=== PATIENT | female | born 1955 | race Caucasian/White ===

== ENCOUNTER 2020-06-13 16:30 | Emergency (ER) | payer OTHER, SELFPAY ==
--- NOTE | ~2020-06-13 | CT_ITS ---
EXAMINATION: CT brain wo con EXAM DATE: 06/13/2020 17:31 INDICATION: Dizziness, confusion. TECHNIQUE: Spiral CT of the head was performed without contrast. Axial, coronal and sagittal images were reviewed. The dose-length product (DLP) for this examination was 605.33 mGy-cm. The exposure w as tailored according to patient size, and iterative reconstruction (ASIR) was used as additional dos e reduction technique. There is no prior study for comparison. FINDINGS: There is no acute intraparenchymal hemorrhage. No evidence of intraparenchymal brain mass lesion. No evidence of acute infarction. There is no mass effect or midline shift. The ventricles are normal in size. There are no extra-axial collections. There are no acute calvarial fractures. T he orbits are unremarkable. Soft tissue is unremarkable. The visualized sinuses and mastoid air belkis ls are well aerated. IMPRESSION: 1. No acute intracranial findings. Reviewed, dictated and finalized at location A. 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
[2020-06-13 16:34] VITALS: BP 133/72; PULSE 88; RESP 18; TEMP 36.4; O2SAT 94
--- NOTE | 2020-06-13 16:44 | ECG_ITS ---
Measurements Intervals [place] Rate: 80 P: 35 WV: 148 QRS: 41 QRSD: 78 T: 65 QT: 395 QTc: 458 Interpretive Statements SINUS RHYTHM VENTRICULAR PREMATURE COMPLEX BORDERLINE ECG Electronically Signed On 06-14-2020 7:10:19 ELECTRON BEAM MACHINE WELDER SETTER by Deven Acuña D.O.
--- NOTE | 2020-06-13 17:04 | PC.NURSE ---
pt sarcastic in room, appears to be having trouble getting words out when speaking to staff. pt not making sense. provider in room nno at this time
--- NOTE | 2020-06-13 17:11 | ED.DIZZY ---
HPI - Dizziness General Chief Complaint: Dizziness <Francisco Javier Kwok MD - Last Filed: 06/13/20 19:00> Stated Complaint: vertigo <Francisco Javier Kwok MD - Last Filed: 06/13/20 19:00> Time Seen by Provider: 06/13/20 16:55 <Francisco Javier Kwok MD - Last Filed: 06/13/20 19:00> History of Present Illness HPI Narrative: History limited due to poor historian/intoxication 65 yo female w/ h/o hypothyroidism presents to the ED for disorientation. She reports that she has felt strange since about 3 PM. She is not able to describe what she is feeling. She reports that she can not taste anything, but she knows she likes it so she keeps eating. She also reports that she can not eat because she can't keep anything down. She reportedly used marijuana for the first time in decades today, buut she does not believe that it is the cause of her symptoms. <Francisco Javier Kwok MD - Last Filed: 06/13/20 19:00> Related Data Allergies/Adverse Reactions: Allergies Allergy/AdvReac Type Severity Reaction Status Date / Time codeine Allergy Intermediate Nausea and Verified 06/13/20 18:51 Vomiting <Francisco Javier Kwok MD - Last Filed: 06/13/20 19:00> Review of Systems Review of Systems: All systems reviewed & are unremarkable except as noted in HPI and below <Francisco Javier Kwok MD - Last Filed: 06/13/20 19:00> Constitutional: Constitutional: Denies fever(s) <Francisco Javier Kwok MD - Last Filed: 06/13/20 19:00> ENT: Reports dizziness <Francisco Javier Kwok MD - Last Filed: 06/13/20 19:00> Cardiovascular: Cardiovascular: Denies chest pain <Francisco Javier Kwok MD - Last Filed: 06/13/20 19:00> Respiratory: Respiratory: Denies dyspnea <Francisco Javier Kwok MD - Last Filed: 06/13/20 19:00> Gastrointestinal: Gastrointestinal: Reports nausea and Reports vomiting <Francisco Javier Kwok MD - Last Filed: 06/13/20 19:00> Genitourinary: Genitourinary: Denies dysuria <Francisco Javier Kwok MD - Last Filed: 06/13/20 19:00> Neurologic: Denies syncope and Denies weakness <Francisco Javier Kwok MD - Last Filed: 06/13/20 19:00> Psychiatric: Psychiatric: Reports anxiety <Francisco Javier Kwok MD - Last Filed: 06/13/20 19:00> [facility] Past Medical History Medical History: Medical History Encounter for smoking cessation counseling Hypertensive heart disease with CHF Lymphedema of right lower extremity Tinnitus <Francisco Javier Kwok MD - Last Filed: 06/13/20 19:00> Family History Family History: Family History Other Hypertension <Francisco Javier Kwok MD - Last Filed: 06/13/20 19:00> Social History Social History: Social History Smoking status: Smoker, status unknown Second hand tobacco smoke exposure: No Alcohol intake: never Gender identity (if verbalized by the patient): Female <Francisco Javier Kwok MD - Last Filed: 06/13/20 19:00> Exam Const: General: healthy appearing, no acute distress and alert <Francisco Javier Kwok MD - Last Filed: 06/13/20 19:00> Orientation/consciousness: patient oriented x3 <Francisco Javier Kwok MD - Last Filed: 06/13/20 19:00> HENMT: Head: normal to inspection <Francisco Javier Kwok MD - Last Filed: 06/13/20 19:00> Eyes: Pupils: Equal, round and reactive pupils present <Francisco Javier Kwok MD - Last Filed: 06/13/20 19:00> EOM: EOMs intact bilaterally <Francisco Javier Kwok MD - Last Filed: 06/13/20 19:00> Resp: Effort & Inspection: normal respiratory effort <Francisco Javier Kwok MD - Last Filed: 06/13/20 19:00> Auscultation: clear to auscultation bilaterally <Francisco Javier Kwok MD - Last Filed: 06/13/20 19:00> Cardio: Rate: regular rate <Francisco Javier Kwok MD - Last Filed: 06/13/20 19:00> Rhythm: regular rhythm <Francisco Javier Kwok MD - Last Filed: 06/13/20 19:00> GI: GI Palp: Yes Soft t
[2020-06-13] MEDS: SODIUM CHLORIDE 0.9% IV 1,000 ML 999 ML IV CONT (17:43)
[2020-06-13] MEDS: MECLIZINE HCL 25 MG TABLET PO (17:43)
[2020-06-13 17:45] LABS: Basophils Percent Auto 0.2 % (0.2-1.2); Eosinophils Absolute Auto 0.4 K/mm3 (0-0.3); Eosinophils Percent Auto 2.5 % (0-4.4); Hematocrit 40.2 % (37.0-47.0); Hemoglobin 13.3 g/dL (12.0-15.0); Immature Granulocyte Absolute 0.08 K/mm3 (0.00-0.031); Immature Granulocyte Percent A 0.5 % (0-0.5); Lymphocytes Percent Auto 16.5 % (18.3-44.2); Mean Corpuscular HGB Conc 33.1 g/dl (32-36); Mean Corpuscular Hemoglobin 32.2 pg (26-34); Mean Corpuscular Volume 97.3 fl (80-100); Mean Platelet Volume 11.3 fl (7.4-10.4); Monocytes Absolute Auto 1.1 K/mm3 (0.1-0.6); Monocytes Percent Auto 6.9 % (2.6-8.5); Neutrophils Percent Auto 73.4 % (45.5-73.1); Platelet Count Result 290 k/mm3 (150-375); Red Blood Count 4.13 M/mm3 (4.2-5.4); Red Cell Distribution Width 13.4 % (11.5-14.5); White Blood Count 16.3 K/mm3 (4.5-10.0)
[2020-06-13 18:07] LABS: Alanine Aminotransferase 15 U/L (4-35); Albumin Level 3.9 g/dL (3.5-5.1); Alkaline Phosphatase 114 U/L (38-126); Anion Gap 8 mmol/L (8-16); Aspartate Amino Transferase 29 U/L (14-36); Bilirubin,Total 0.7 mg/dL (0.2-1.3); Blood Urea Nitrogen 11 mg/dL (7-17); Calcium 8.5 mg/dL (8.4-10.2); Carbon Dioxide 26 mmol/L (22-30); Chloride 103 mmol/L (98-107); Estimated CRCL calculation 70 ml/min; Estimated Glomerular Filt Rate > 60; Glucose 87 mg/dL (65-105); Potassium 4.1 mmol/L (3.4-5.0); Sodium 137 mmol/L (137-145)
[2020-06-13 18:52] VITALS: BP 112/78; PULSE 80; RESP 20; O2SAT 95
--- NOTE | 2020-06-13 18:52 | PC.NURSE ---
Patient ambulated to bathroom at this time, advised we need a urine sample. Patient threw the urine cup away and states you already got that from me. No urine sample was obtained earlier and patient is aware we are still needing this.
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
== END 2020-06-13 19:25 | disposition left against medical advice (07) ==
PROVIDERS: Emergency Medicine; Emergency Provider Emergency Medicine; PCP Internal Medicine
DX: R42 Dizziness and giddiness (principal); I11.0 Hypertensive heart disease with heart failure; I50.9 Heart failure, unspecified; I49.3 Ventricular premature depolarization
CPT/HCPCS: 36415; 70450; 80053; 85025; 93005; 99284; A9270; J7030

== ENCOUNTER 2021-08-09 10:41 | Outpatient (CLI) | payer OTHER, SELFPAY ==
[2021-08-09 11:21] LABS: Basophils Absolute Auto 0.1 K/mm3 (0.0-0.1); Basophils Percent Auto 0.7 % (0.2-1.2); Eosinophils Absolute Auto 0.3 K/mm3 (0-0.3); Eosinophils Percent Auto 3.9 % (0-4.4); Hematocrit 44.1 % (37.0-47.0); Hemoglobin 15.5 g/dL (12.0-15.0); Immature Granulocyte Absolute 0.02 K/mm3 (0.00-0.031); Immature Granulocyte Percent A 0.2 % (0-0.5); Lymphocytes Absolute Auto 2.74 K/mm3 (0.9-3.2); Lymphocytes Percent Auto 32.6 % (18.3-44.2); Mean Corpuscular HGB Conc 35.1 g/dl (32-36); Mean Corpuscular Hemoglobin 32.4 pg (26-34); Mean Corpuscular Volume 92.3 fl (80-100); Mean Platelet Volume 10.7 fl (7.4-10.4); Monocytes Absolute Auto 0.6 K/mm3 (0.1-0.6); Monocytes Percent Auto 7.6 % (2.6-8.5); Neutrophils Absolute Auto 4.6 K/mm3 (1.3-6.7); Platelet Count Result 361 k/mm3 (150-375); Red Blood Count 4.78 M/mm3 (4.2-5.4); Red Cell Distribution Width 12.2 % (11.5-14.5); White Blood Count 8.4 K/mm3 (4.5-10.0)
[2021-08-09 11:36] LABS: Alanine Aminotransferase 13 U/L (4-35); Albumin Level 4.5 g/dL (3.5-5.1); Alkaline Phosphatase 108 U/L (38-126); Anion Gap 6 mmol/L (8-16); Aspartate Amino Transferase 30 U/L (14-36); Bilirubin,Total 0.7 mg/dL (0.2-1.3); Blood Urea Nitrogen 18 mg/dL (7-17); Calcium 8.9 mg/dL (8.4-10.2); Carbon Dioxide 32 mmol/L (22-30); Chloride 98 mmol/L (98-107); Estimated Glomerular Filt Rate 56; Glucose 100 mg/dL (65-110); HDL Direct 76 mg/dL; Potassium 2.8 mmol/L (3.4-5.0); Sodium 136 mmol/L (137-145); Triglycerides 172 mg/dL (<150)
[2021-08-09 11:41] LABS: LDL Cholesterol Direct 191 mg/dL
[2021-08-09 12:21] LABS: Cholesterol 368 mg/dL (0-200)
[2021-08-09 12:38] LABS: Folic Acid 7.7 ng/mL (2.76->20)
[2021-08-11 08:52] LABS: PCP NEGATIVE ng/mL (<25)
[2021-08-18 15:56] LABS: Amphetamines NEGATIVE; Barbiturates NEGATIVE; Marijuana Metabolites NEGATIVE
[2021-08-18 15:57] LABS: Benzodiazepines NEGATIVE; Cocaine Metabolites NEGATIVE
== END 2021-08-09 10:42 | disposition home or self-care (01) ==
LOC: ANHLAB 10:43
PROVIDERS: PCP Internal Medicine; Visit Provider Nurse Practitioner
DX: E55.9 Vitamin D deficiency, unspecified (principal); E07.9 Disorder of thyroid, unspecified; E56.9 Vitamin deficiency, unspecified; Z13.220 Encounter for screening for lipoid disorders; Z13.29 Encounter for screening for other suspected endocrine disorder
CPT/HCPCS: 36415; 80053; 80061; 80307; 82306; 82607; 82746; 84443; 85025

== ENCOUNTER 2021-08-16 10:53 | Outpatient (CLI) | payer OTHER, SELFPAY ==
--- NOTE | ~2021-08-16 | XR_ITS ---
XR lumbar spine 2-3V DATE: 08/16/2021 12:31 INDICATION: Low back pain. No recent injury. TECHNIQUE: AP, lateral, coned lateral lumbosacral views COMPARISON: July 12, 2006 lumbar spine FINDINGS: There is prominent diffuse osteopenia. There are multiple compression fracture deformities of the lower thoracic and lumbar spine, particula rly T11, T12, L1, L2, with mild depression of the superior vertebral endplates of L3 and L4. Prominent degenerative disc disease at L5-S1. The lumbar and included lower thoracic pedicles are intact. The sacroiliac joints are unremarkable other than degenerative change. IMPRESSION: Diffuse osteopenia Multiple compression fracture deformities of the lower thoracic and lumbar spine Prominent degenerative disc disease at L5-S1 Reviewed, dictated and finalized at location A. IMPRESSION: Diffuse osteopenia Multiple compression fracture deformities of the lower thoracic and lumbar spin e Prominent degenerative disc disease at L5-S1
[2021-08-16 11:50] LABS: Anion Gap 4 mmol/L (8-16); Blood Urea Nitrogen 15 mg/dL (7-17); Calcium 8.8 mg/dL (8.4-10.2); Carbon Dioxide 27 mmol/L (22-30); Chloride 105 mmol/L (98-107); Estimated Glomerular Filt Rate > 60; Glucose 82 mg/dL (65-110); Potassium 4.6 mmol/L (3.4-5.0); Sodium 136 mmol/L (137-145)
== END 2021-08-16 10:54 | disposition home or self-care (01) ==
LOC: ANHLAB 10:55
PROVIDERS: PCP Internal Medicine; Visit Provider Nurse Practitioner
DX: E87.6 Hypokalemia (principal); M85.88 Other specified disorders of bone density and structure, other site; M51.37 Other intervertebral disc degeneration, lumbosacral region
CPT/HCPCS: 36415; 72100; 80048

== ENCOUNTER 2022-02-17 13:48 | Outpatient (CLI) | payer OTHER, SELFPAY ==
[2022-02-17 21:34] LABS: Thyroid Stimulating Hormone 0.024 uIU/mL (0.465-4.680)
== END 2022-02-17 13:49 | disposition home or self-care (01) ==
LOC: ANHGOSHLAB 13:50
PROVIDERS: PCP Internal Medicine; Visit Provider Nurse Practitioner
DX: E03.9 Hypothyroidism, unspecified (principal)
CPT/HCPCS: 36415; 84443

== ENCOUNTER 2022-12-25 14:20 | Outpatient (CLI) | payer MEDICARE, MEDICAID, SELFPAY ==
[2022-12-25 18:37] LABS: Anion Gap 7 mmol/L (8-16); Blood Urea Nitrogen 18 mg/dL (7-17); Carbon Dioxide 33 mmol/L (22-30); Chloride 92 mmol/L (98-107); Estimated Glomerular Filt Rate 56; Glucose 95 mg/dL (65-110); Potassium 2.9 mmol/L (3.4-5.0); Sodium 132 mmol/L (137-145)
[2022-12-25 18:53] LABS: Free T4 Free Thyroxine 0.87 ng/mL (0.78-2.19)
== END 2022-12-25 14:21 | disposition home or self-care (01) ==
LOC: ANHGOSHLAB 14:26
PROVIDERS: PCP Internal Medicine; Visit Provider Clinical Nurse Specialist
DX: E07.9 Disorder of thyroid, unspecified (principal); E03.9 Hypothyroidism, unspecified; E87.6 Hypokalemia
CPT/HCPCS: 36415; 80048; 84439; 84443

== ENCOUNTER 2023-09-07 13:28 | Emergency (ER) | payer MEDICARE, MEDICAID, SELFPAY ==
--- NOTE | ~2023-09-07 | XR_ITS ---
Clinical Indication: Chest pain PA and lateral views of the chest: Comparison: None Findings: The lungs are clear, without evidence of focal consolidation or pleural effusion. Cardiome diastinal silhouette is within normal limits. Bones and soft tissues are unremarkable. Impression: Normal chest. Reviewed, dictated and finalized at location . Impression: Normal chest.
[2023-09-07 13:35] VITALS: BP 141/70; PULSE 49; RESP 18; TEMP 36.8; O2SAT 100
--- NOTE | 2023-09-07 13:43 | ECG_ITS ---
SEE SCANNED COPY FOR CONFIRMED REPORT MTDD
[2023-09-07 14:10] LABS: Basophils Absolute Auto 0.1 K/mm3 (0.0-0.1); Basophils Percent Auto 0.5 % (0.2-1.2); Eosinophils Percent Auto 8.7 % (0-4.4); Hematocrit 43.5 % (37.0-47.0); Hemoglobin 14.5 g/dL (12.0-15.0); Immature Granulocyte Absolute 0.05 K/mm3 (0.00-0.031); Immature Granulocyte Percent A 0.5 % (0-0.5); Lymphocytes Absolute Auto 2.58 K/mm3 (0.9-3.2); Lymphocytes Percent Auto 23.3 % (18.3-44.2); Mean Corpuscular HGB Conc 33.3 g/dl (32-36); Mean Corpuscular Hemoglobin 31.3 pg (26-34); Mean Platelet Volume 10.2 fl (7.4-10.4); Monocytes Absolute Auto 0.9 K/mm3 (0.1-0.6); Neutrophils Absolute Auto 6.5 K/mm3 (1.3-6.7); Platelet Count Result 345 k/mm3 (150-375); Red Blood Count 4.63 M/mm3 (4.2-5.4); Red Cell Distribution Width 12.8 % (11.5-14.5); White Blood Count 11.1 K/mm3 (4.5-10.0)
--- NOTE | 2023-09-07 14:21 | ED.GENADULT ---
HPI - General Adult General Chief complaint: Shortness of Breath/Dyspnea Stated complaint: SOB Time Seen by Provider: 09/07/23 13:47 History of Present Illness HPI narrative: 68-year-old female with history of smoking presents emergency department for evaluation of increased cough and wheeze that started this morning. Patient states that she was feeling fine yesterday but had increased cough and wheeze early this morning. Upon arrival the emergency department patient is well-appearing and in no distress. Patient reports she has to be half pack-a-day smoker for approximately 40 years and 1.5 years ago switched to vaping Related Data Allergies Allergy/AdvReac Type Severity Reaction Status Date / Time codeine Allergy Intermediate Nausea and Verified 08/27/23 14:21 Vomiting adhesive tape Allergy Mild Rash Verified 08/27/23 14:21 Review of Systems Review of Systems: All systems reviewed & are unremarkable except as noted in HPI and below PMFSH Past Medical History Medical History Encounter for smoking cessation counseling Hypertensive heart disease with CHF Hypothyroid Lymphedema of right lower extremity Thyroid disorder Tinnitus Surgical History Surgical History H/O lumbosacral spine surgery 2005 H/O thyroidectomy H/O: hysterectomy Family History Family History Other Hypertension Social History Social History Smoking packs per day: 0.5 Smoking cigarettes per day: 10.0 Smoking status: Current every day smoker Tobacco type: e-cigarettes/vaping Second hand tobacco smoke exposure: No Alcohol intake: never Substance use: never Substance use type: does not use Do You Feel Safe in your Home?: Yes Lack of Transportation: YES Lack of Food: Sometimes True Current Housing: I Do Not Have Housing Concerned About Future Housing: No Difficulty Paying Gas/Electric Bills: Decline to Answer Difficulty Paying for Meds: No Currently Unemployed: No Education: High School Diploma/GED Difficulty w/ Childcare or Family Care: No Gender identity (if verbalized by the patient): Female Exam Narrative: APPEARANCE: Well appearing, no pain, no distress, well-nourished. HEAD: normocephalic, atraumatic. EYES: PERRLA/EOMI, conjunctivae clear. NOSE: Normal no drainage EARS:TMS clear with good light reflex. THROAT: Pharynx clear, no exudate. NECK: Supple. No adenopathy, no masses. RESPIRATORY: Airway patent, respirations nonlabored. Clear to auscultation bilaterally, no rales, rhonchi, wheezing. CARDIOVASCULAR: Regular rate and rhythm without murmurs rubs or gallops. ABDOMINAL: Soft, nontender, nondistended, normal bowel sounds MUSCULOSKELETAL: Moves all extremities. Strength/ROM intact, No edema, No calf tenderness. NEURO: Alert. Cranial nerves II through XII intact. SKIN: Warm, dry. Normal Color Course Course Emergency Course: Patient was treated as a COPD exacerbation and discharged home. Vital Signs Vital signs: Vital Signs Temperature 98.2 F 09/07/23 13:35 Pulse Rate 49 L 09/07/23 13:35 Respiratory Rate 18 09/07/23 13:35 Blood Pressure 141/70 H 09/07/23 13:35 Pulse Oximetry 100 09/07/23 13:35 Oxygen Delivery Room Air 09/07/23 13:35 Temperature 98.7 F 09/07/23 16:24 Pulse Rate 64 09/07/23 16:24 Respiratory Rate 20 09/07/23 16:24 Blood Pressure 135/73 09/07/23 16:24 Pulse Oximetry 99 09/07/23 16:24 Oxygen Delivery Room Air 09/07/23 13:35 Medical Decision Making [facility] Narrative Medical decision making narrative: 68-year-old female with history of smoking presents emergency department for evaluation for cough and wheeze. Patient is afebrile but does have a leukocytosis of 11.11 with a stable hemoglobin of 14.5, no significant abnormalities on the patient's CMP chest x-ray showed no acute abnormality. Patient did have wheezing on exam that was improved with breathing treatment. Patient will be started on antibiotics and steroids for suspected COPD exacerbation. Differential Diagnosis Differential Diagnosis: COPD, pneumonia, COVID, influenza, RSV, pneumothorax Vital Signs Vital Signs: Vital Signs Temperature 98.2 F 09/07/23 13:35 Pulse Rate 49 L 09/07/23 13:35 Respiratory Rate 18 09/07/23 13:35 Blood Pressure 141/70 H 09/07/23 13:35 Pulse Oximetry 100 09/07/23 13:35 Oxygen Delivery Room Air 09/07/23 13:35 Temperature 98.7 F 09/07/23 16:24 Pulse Rate 64 09/07/23 16:24 Respiratory Rate 20 09/07/23 16:24 Blood Pressure 135/73 09/07/23 16:24 Pulse Oximetry 99 09/07/23 16:24 Oxygen Delivery Room Air 09/07/23 13:35 Lab Data Lab results reviewed: Yes I reviewed the patient's lab results. 09/07/23 14:01 09/07/23 14:01 Labs: Lab Results 09/07/23 Range/Units 14:01 WBC 11.1 H (4.5-10.0) K/mm3 RBC 4.63 (4.2-5.4) M/mm3 Hgb 14.5 (12.0-15.0) g/dL Hct 43.5 (37.0-47.0) % MCV 94.0 (80-100) fl MCH 31.3 (26-34) pg MCHC 33.3 (32-36) g/dl RDW 12.8 (11.5-14.5) % Plt Count 345 (150-375) k/mm3 MPV 10.2 (7.4-10.4) fl Immature Gran % (Auto) 0.5 (0-0.5) % Neut % (Auto) 59.0 (45.5-73.1) % Lymph % (Auto) 23.3 (18.3-44.2) % [place]man % (Auto) 8.0 (2.6-8.5) % Eos % (Auto) 8.7 H (0-4.4) % Baso % (Auto) 0.5 (0.2-1.2) % Lymph # (Auto) 2.58 (0.9-3.2) K/mm3 [place]man # (Auto) 0.9 H (0.1-0.6) K/mm3 Eos # (Auto) 1.0 H (0-0.3) K/mm3 Baso # (Auto) 0.1 (0.0-0.1) K/mm3 Abs Immat Gran (auto) 0.05 H (0.00-0.031) K/mm3 Absolute Neuts (auto) 6.5 (1.3-6.7) K/mm3 Absolute Nucleated RBC 0.000 (0.0-0.012) K/mm3 Nucleated RBC % 0.0 (0.0-0.2) % Sodium 136 L (137-145) mmol/L Potassium 3.3 L (3.4-5.0) mmol/L Chloride 98 (98-107) mmol/L Carbon Dioxide 33 H (22-30) mmol/L Anion Gap 5 (4-12) mmol/L BUN 17 (7-17) mg/dL Creatinine 0.70 (0.7-1.0) mg/dL Estim Creat Clear Calc 56 ml/min Estimated GFR > 60 (59 - ) Glucose 84 (65-110) mg/dL Calcium 9.0 (8.4-10.2) mg/dL Total Bilirubin 0.7 (0.2-1.3) mg/dL AST 29 (14-36) U/L ALT 20 (6-35) U/L Alkaline Phosphatase 113 (38-126) U/L Total Protein 8.0 (6.3-8.2) g/dL Albumin 4.6 (3.5-5.1) g/dL Discharge Plan Discharge Clinical Impression: COPD exacerbation, Pneumonia Patient Disposition: Home, Self-Care Condition: Stable Instructions: Antibiotic Form, COPD (Chronic Obstructive Pulmonary Disease) (DC), Community Acquired Pneumonia (ED) Additional Instructions: Albuterol inhaler for cough and shortness of breath. antibiotic as directed until completed. Prednisone as directed until completed. Have close follow-up with her primary care physician. Prescriptions: New amoxicillin-pot clavulanate 875-125 mg tablet 1 tablet PO Q12H 7 Days Qty: 14 0RF azithromycin 250 mg tablet See Rx Instructions .ROUTE .COMPLEX Qty: 6 0RF Rx Instructions: For 250 mg dose pack: take 500 mg today (day 1), then 250 mg for 4 days (days 2-5) albuterol sulfate 90 mcg/actuation HFA aerosol inhaler 1 inh inhalation QID PRN (Reason: shortness of breath or wheezing) Qty: 6.7 0RF No Action cholecalciferol (vitamin D3) 1,250 mcg (50,000 unit) capsule 1,250 mcg PO .Every 2 weeks Qty: 6 1RF potassium chloride 20 mEq tablet extended release 20 meq PO DAILY Qty: 90 1RF atorvastatin 10 mg tablet 10 mg PO QHS Qty: 90 1RF furosemide 40 mg tablet 40 mg PO QAM Qty: 90 0RF levothyroxine 50 mcg tablet 50 mcg PO DAILY Qty: 90 0RF Follow-up/Referrals: Jhony Kahn DO [Primary Care Provider] -
[2023-09-07 14:25] VITALS: PULSE 66; RESP 20
[2023-09-07] MEDS: ALBUTEROL SULFATE NEB 2.5 MG/3 ML INH INHALATION (14:25)
[2023-09-07 14:27] LABS: Alanine Aminotransferase 20 U/L (6-35); Albumin Level 4.6 g/dL (3.5-5.1); Alkaline Phosphatase 113 U/L (38-126); Anion Gap 5 mmol/L (4-12); Aspartate Amino Transferase 29 U/L (14-36); Bilirubin,Total 0.7 mg/dL (0.2-1.3); Blood Urea Nitrogen 17 mg/dL (7-17); Carbon Dioxide 33 mmol/L (22-30); Chloride 98 mmol/L (98-107); Estimated CRCL calculation 56 ml/min; Estimated Glomerular Filt Rate > 60; Glucose 84 mg/dL (65-110); Potassium 3.3 mmol/L (3.4-5.0); Sodium 136 mmol/L (137-145)
[2023-09-07 14:34] VITALS: PULSE 63; RESP 20
[2023-09-07] MEDS: AZITHROMYCIN 250 MG TABLET 500 MG PO (16:05)
[2023-09-07] MEDS: AMOXICILLIN/CLAVULANATE K 875-125 MG TAB 1 TABLET PO (16:05)
[2023-09-07 16:24] VITALS: BP 135/73; PULSE 64; RESP 20; TEMP 37.1; O2SAT 99
== END 2023-09-07 16:20 | disposition home or self-care (01) ==
PROVIDERS: Emergency Provider Emergency Medicine; PCP Internal Medicine
DX: J44.1 Chronic obstructive pulmonary disease with (acute) exacerbation (principal); J18.9 Pneumonia, unspecified organism; I11.0 Hypertensive heart disease with heart failure; I50.9 Heart failure, unspecified; E89.0 Postprocedural hypothyroidism; F17.290 Nicotine dependence, other tobacco product, uncomplicated; Z90.710 Acquired absence of both cervix and uterus; I49.3 Ventricular premature depolarization
CPT/HCPCS: 36415; 71046; 80053; 85025; 93005; 94640; 99284; A9270

== ENCOUNTER 2023-09-21 13:40 | Outpatient (CLI) | payer MEDICARE, MEDICAID, SELFPAY ==
--- NOTE | ~2023-09-21 | XR_ITS ---
Left Shoulder Technique: AP and scapular Y views were obtained. Clinical History: Pain COMPARISON: 11/06/2014 Findings: No fracture or dislocation is seen. Osseous alignment is anatomic. There is advanced degene rative change of the glenohumeral joint with large inferomedial humeral head osteophyte. AC joint int act.. Soft tissues are unremarkable. Impression: Advanced glenohumeral joint degenerative change, as above, markedly progressed since prior exam. Reviewed, dictated and finalized at location M. Impression: Advanced glenohumeral joint degenerative change, as above, markedly progressed since prior exam.
== END 2023-09-21 13:41 | disposition home or self-care (01) ==
LOC: ANHIMG 13:43
PROVIDERS: PCP Internal Medicine; Visit Provider Clinical Nurse Specialist
DX: M19.012 Primary osteoarthritis, left shoulder (principal)
CPT/HCPCS: 73030

== ENCOUNTER 2025-03-30 13:59 | Outpatient (CLI) | payer MEDICARE, MEDICAID, SELFPAY ==
--- NOTE | ~2025-03-30 | XR_ITS ---
EXAMINATION: XR foot RT standing 2V, 03/30/2025 14:20 KILN PULLER HISTORY: S92.901A - Unspecified fracture of right foot, initial en... COMPARISON: No comparisons available. Findings: There is a healing fracture of the fifth metatarsal head No significant degenerative changes. Soft tissues unremarkable. Impression: Healing metatarsal fracture Reviewed, dictated and finalized at location P. PULLER Impression: Healing metatarsal fracture
--- OUTSIDE RECORDS SUMMARY | 2025-03-30 14:10 | XMS_ITS | Clinical Summary ---
Author Organization [facility] Address [facility] [place] [address] Care Team Providers Care Tube Lancer Name Role Phone Juani Calloway MIXER BLENDER Primary Care Provider + [phone] Allergies Active Allergy Reactions Criticality Noted Date Comments Fexofenadine-Pseudoephed Er Unknown 12/06/19 20 Codeine Unknown 12/06/2019 Medications traMADol 50 MG tablet Take 50 mg by mouth every 6 (six) hours as needed for Pain. Active NON FORMULARYIndicatio ns:unknown name of a BP medication Indications: unknown name of a BP medication Active amphetamine-dextro amphetamine XR 5 MG 24 hr capsuleIndications :unknown dose Take by mouth every morning. Indications: unknown dose Active ondansetron (ZOFRAN-ODT) 4 MG disintegrating tablet Take 1 tablet (4 mg total) by mouth every 8 (eight) hours as needed for Nausea. 20 tablet 5 Active naproxen (NAPROSYN) 500 MG tablet Take 1 tablet (500 mg total) by mouth 2 (two) times daily with meals. 10 tablet 5 Active traMADol (ULTRAM) 50 MG tabletIndications: Acute Pain < 7 Day Supply Take 1 tablet (50 mg total) by mouth every 6 (six) hours as needed for Pain. Indications: Acute Pain < 7 Day Supply 21 tablet 5 Active Social History Tobacco Use Types Packs/Day Years Used Date Smoking Tobacco: Every Day Smokeless Tobacco: Never Alcohol Use Standard Drinks/Week Comments Never 0 (1 standard drink = 0.6 oz pur e alcohol) AUDIT-C Answer Date Recorded Frequency of Alcohol Consumption Never 12/06/2019 Average Number of Drinks Not on file 020 Frequency of Binge Drinking Not on file 11/18 Comments No Sex and Gender Information Value Date Recorded Sex Assigned at Not on file Legal Sex Female 7:23 PM CDT Gender Identity Not on file Sexual Orientation Not on file Last Filed Vital Signs Vital Sign Reading Time Taken Comments Blood Pressure 148/97 12/07/2024 7:09 AM CDT Pulse 64 12/07/2024 7:09 AM CDT Temperature 36.2 C (97.2 F) 12/07/2024 7:09 AM CDT Respiratory Rate 16 12/07/2024 7:09 AM CDT Oxygen Saturation 97% 12/07/2024 7:09 AM CDT Inhaled Oxygen Concentration - - Weight 59 kg (130 lb) 12/07/2024 7:09 AM CDT Height 160 cm (5' 3) 12/07/2024 7:09 AM CDT Body Mass Index 23.03 12/07/2024 7:09 AM CDT Plan of Treatment Health Maintenance Due Date Last Done Comments Colorectal Cancer Screening Colonoscopy (10 Years) 1957 Hepatitis C 1975 DTaP, Tdap and Td Vaccines ( 1 - Tdap) 1976 Pneumococcal Vaccine: 50+ Years (1 of 2 - PCV) 1976 Mammogram Screening 1997 Zoster Vaccines (1 of 2) 2007 Annual Medicare Wellness Visit 2022 Dexa Scan (General) 2022 COVID-19 Vaccine (3 - 2024-2 6 season) 2025 01/18/2021, 12/14/2020 Influenza Adult (#1) 2025 RSV Immunization or 60+ Years (1 - 1-dose 75+ series) 2032 Hepatitis A Vaccines Aged Out No long er eligible based on patient's age to complete this topic Meningococcal B Vaccine Aged Out No l onger eligible based on patient's age to complete this topic Meningococcal Vaccine Aged Out No kim eleazar eligible based on patient's age to complete this topic RSV Immunizations Under 20 Months Aged Out No longer eligible b ased on patient's age to complete this topic Insurance MEDICARE MEDICAID Care Teams Tube Lancer Relationship Specialty Start Date End Date Juani Calloway FNP [id number] [facility] [address] [place] [address] PCP - General CLINICAL NURSE SPECIALIST 11/29/22
== END 2025-03-30 14:00 | disposition home or self-care (01) ==
PROVIDERS: PCP Internal Medicine; Visit Provider Clinical Nurse Specialist
DX: S92.354D Nondisplaced fracture of fifth metatarsal bone, right foot, subsequent encounter for fracture with routine healing (principal); X58.XXXD Exposure to other specified factors, subsequent encounter
CPT/HCPCS: 73620